=== PATIENT | female | born 1995 | race Caucasian/White ===

== ENCOUNTER 2017-05-28 19:59 | Emergency (ER) | payer OTHER ==
[2017-05-28 20:23] VITALS: BP 137/82; PULSE 88; TEMP 99.9; O2SAT 100
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
[2017-05-28 21:54] VITALS: RESP 20
--- NOTE | 2017-05-29 08:07 | RAD ---
PROCEDURE: Left Knee Radiographs. HISTORY: Pain. COMPARISON: None. FINDINGS: BONES: No acute fracture or destructive bony lesion identified. JOINTS: Normal. No osteoarthritis. JOINT EFFUSION: None. OTHER FINDINGS: None. IMPRESSION: Unremarkable radiographs of the left knee.
== END 2017-05-28 21:53 | disposition home or self-care (01) ==
LOC: C.ER 19:59 → SUPCPDRO 19:59 → C.ER 21:53
DX: S80.02XA Contusion of left knee, initial encounter (principal); V09.20XA Pedestrian injured in traffic accident involving unspecified motor vehicles, initial encounter; Y92.410 Unspecified street and highway as the place of occurrence of the external cause